=== PATIENT | female | born 1950 | race African-American/Black ===

== ENCOUNTER 2016-06-26 06:00 | Day surgery (SDC) | payer BC, MEDICARE ==
[2016-06-22 11:38] LABS: BASOPHILS 0.7 %; BASOPHILS ABSOLUTE 0.03 10/3/uL (0.0-0.16); EOSINOPHILS 3.6 %; EOSINOPHILS ABSOLUTE 0.16 10/3/uL (0.0-0.53); IMMATURE GRANULOCYTES 0.2 %; IMMATURE GRANULOCYTES ABSOLUTE 0.01 10/3/uL (0.0-0.11); LYMPHOCYTES ABSOLUTE 2.22 10/3/uL (0.67-4.30); MEAN CORPUS HGB CONC 33.3 g/dL (32.0-36.0); MEAN CORPUSCULAR HEMOGLOB 31.7 pg (26.0-34.0); MEAN PLATELET VOLUME 11.5 fL (9.2-13.0); MONOCYTES 8.1 %; MONOCYTES ABSOLUTE 0.36 10/3/uL (0.21-1.20); NEUTROPHILS 37.4 %; NEUTROPHILS ABSOLUTE 1.66 10/3/uL (2.02-8.40); PLATELET COUNT 206 10/3/uL (150-400); RBC DISTRIBUTION WIDTH 13.2 % (12.0-16.0); RED CELL COUNT 3.79 10/6/uL (4.0-5.6); WHITE BLOOD CELLS 4.4 10/3/uL (4.5-10.5)
[2016-06-22 11:41] LABS: MANUAL DIFF NO %
[2016-06-22 11:46] LABS: PARTIAL THROMBO TIME 26.5 SEC (22.5-37.2); PROTIME (NOT ORD) 12.7 SEC (12.0-14.5)
[2016-06-22 11:52] LABS: CALCIUM, SERUM 9.4 MG/DL (8.5-10.4); CHLORIDE, SERUM 107 MMOL/L (96-112); CO2 (CARBON DIOXIDE) 30 MMOL/L (24-34); CREATININE 0.81 MG/DL (0.55-1.02); GFR AFRICAN AMERICAN 89 ML/MIN (>=60); GFR NON AFRICAN AMERICAN 77 ML/MIN (>=60); GLUCOSE, SERUM 87 MG/DL (60-99); POTASSIUM, SERUM 3.8 MMOL/L (3.5-5.3)
[2016-06-22 11:54] LABS: BUN (BLOOD UREA NITROGEN) 21 MG/DL (6-23); SODIUM, SERUM 144 MMOL/L (135-148)
[2016-06-22 11:59] LABS: PFA (COL/EPI) 122 SEC (72-180)
--- NOTE | ~2016-06-26 | OP ---
Record Of Operation [facility] [address] [place]. [address] NAME: JOSEPH NICHOLS : 52 STATUS : REG [facility] PAT#: [id number] AGE: 65 ADM/REG DATE : 06/26/16 MR#: [id number] REPORT SERV DATE: 06/26/16 DICTATED BY: LANCE DENNIS DATE: 06/26/16 REPORT STATUS : Draft TRANSCRIBED BY: JOSH DATE: 06/26/16 DATE OF PROCEDURE: 06/26/2016 PREOPERATIVE DIAGNOSES: Surgical absence of the breasts, morbid obesity, and history of breast cancer. POSTOPERATIVE DIAGNOSES: Surgical absence of the breast, morbid obesity, and history of breast cancer. PROCEDURES: Bilateral tissue expansion, acellular dermal matrix reconstruction of the breast. INDICATIONS AND FINDINGS OF THE PROCEDURE: This is a 65-year-old female, who presents with a surgical absence of the breast bilaterally. She is appropriate for the above-described operative intervention. DESCRIPTION OF PROCEDURE: The patient was brought to the operative. After adequate sedation was achieved, she was prepped and draped in the usual sterile fashion for the above- described procedure. First, our attention was turned to the left breast. Laterally, an excision in the form of Daniel mastectomy scar was carried out and dissection was carried down to the pectoralis muscle. A dissection of the lateral pectoralis edge was then carried out, and a subpectoral pocket was created. The inferior pectoralis muscle was released using a lighted retractor, and the area was packed with Hibiclens soaked gauze. With this completed, then an appropriately reconstituted 6 x 12 sheet of acellular dermal matrix was sewn to cut to the lateral edge of the pectoralis muscle. This was then sewn to recreate the inframammary crease. The purpose of the acellular dermal matrix was to supplement the soft tissue envelope, recreate the inframammary crease and control the position of the tissue taker off. A pectoralis and sub-serratus plane block was then obtained with ropivacaine and Precedex solution, and a 750 mL tissue taker off was placed behind the muscle AlloDerm construct. The AlloDerm was sewn tightly around its edge. The tissue taker off was then tapped-fixed to the chest wall. The implant was filled to 350. She was then rechecked for hemostasis, irrigated, the lateral 15 drain was placed. She was closed then in a progressive tension fashion using multiple layers of PDS and Monocryl through to an intracuticular in the skin. Attention was turned contralaterally, where an identical procedure was carried out. Again, the lateral excision of scar was carried out. Dissection was carried down to the level of the pectoralis. The pectoralis edge was identified. A pectoralis submuscular dissection was carried out releasing the inferior pectoralis. The acellular dermal matrix was then sewn in for an identical reason, an identical piece of acellular dermal matrix. The tissue taker off was then brought to the table, placed behind the muscle AlloDerm construct. She has been blocked with ropivacaine and Precedex solution, and the implant was then fixed into position and filled to 350. She was thoroughly irrigated with Hibiclens solution, and she was closed in a progressive tension fashion with multiple layers of PDS and Monocryl through to an intracuticular in the skin. She was cleansed with peroxide. Dry dressings were placed. She was remanded to the recovery room in stable condition. All sponge and needle counts were correct. Record Of Operation [facility] [id number] [place]. [address] NAME: JOSEPH NICHOLS : 52 STATUS : REG [facility]#: [id number] AGE: 65 ADM/REG DATE : 06/26/16 MR#: [id number] REPORT SERV DATE: 06/26/16 DICTATED BY: LANCE DENNIS DATE: 06/26/16 REPORT STATUS : Draft TRANSCRIBED BY: JOSH DATE: 06/26/16 SARIAH/JOSH Lance Dennis M.D. / [id number] CC: Mario Augustine N.P.
[~2016-06-26 06:00] MED LIST: ARIMIDEX1 PO; FOS10 PO; HYZAAR 50/12.51 TAB PO; LOP25 PO; LOP50 PO; MOBIC15 MG PO; NORV10 PO; OS500+D PO; PROTONIX PO; VALTREX5 PO
== END 2016-06-26 13:59 | disposition home or self-care (01) ==
LOC: SDC 06:00
PROVIDERS: Surgery Surgery of the Hand
PROC: 0HHV0NZ Insertion of Tissue Expander into Bilateral Breast, Open Approach (ICD-10-PCS; principal; 2016-06-26 07:45)
DX: Z42.1 Encounter for breast reconstruction following mastectomy (principal); E66.01 Morbid (severe) obesity due to excess calories; I10 Essential (primary) hypertension; E78.5 Hyperlipidemia, unspecified; K21.9 Gastro-esophageal reflux disease without esophagitis; Z85.3 Personal history of malignant neoplasm of breast
CPT/HCPCS: 80048; 85025; 85576; 85610; 85730; 93005; A9270-GY; C1769; C1789; J0330; J0690; J1885; J2250; J2270; J2405; J2795; J3010; Q4116